=== PATIENT | male | born 1990 | race Caucasian/White ===

== ENCOUNTER 2017-05-09 04:45 | Emergency (ER) | payer OTHER ==
--- NOTE | 2017-05-09 04:53 | PDOC ---
History of Present Illness - General Stated Complaint: ABD PAIN Time Seen by Provider: 05/09/17 04:50 - History of Present Illness Initial Comments: 05/09/17 05:36 The patient is a 26 year old male with no significant PMH who presents for evaluation of epigastric abdominal pain. The patient reports onset of severe burning epigastric abdominal pain after an episode of non-bilious, non-bloody vomiting earlier this morning. He reports continued symptoms prompting his presentation to the ED for evaluation. He states that the burning sensation does radiate into his chest. He otherwise denies fevers, chills, SOB, chest pain, or changes with urination or bowel movements. Past History - Past Medical History Allergies/Adverse Reactions: Allergies Allergy/AdvReac Type Severity Reaction Status Date / Time peanut Allergy Verified 05/09/17 04:57 Penicillins Allergy Verified 05/09/17 04:57 mushrooms Allergy Uncoded 05/09/17 04:57 Home Medications: Ambulatory Orders Citalopram Hydrobromide [Celexa -] 20 mg PO DAILY 05/09/17 Ipratropium/Albuterol Sulfate [Combivent Respimat Inhal [facility]] 4 gm IH DAILY Loratadine [Claritin] 10 mg PO DAILY 05/09/17 Montelukast Sodium [Singulair] 10 mg PO DAILY 05/09/17 Naproxen 500 mg PO BID #28 tablet 05/09/17 Ondansetron [Zofran *Odt*] 8 mg SL BID PRN #10 od.tablet 05/09/17 Asthma: Yes - Immunization History Immunization Up to Date: No - Suicide/Smoking/Psychosocial Hx Smoking Status: No Smoking History: Never smoked Number of Cigarettes Smoked Daily: 0 Review of Systems - Review of Systems Comments:: 05/09/17 05:44 Constitutional: No fevers, chills, fatigue, malaise HEENT: No Rhinorrhea, nasal congestion, visual changes Cardiovascular: No chest pain, syncope, palpitations, lightheadedness Respiratory: No Cough, SOB, Hemoptysis, Gastrointestinal: Epigastric abdominal pain, nausea, vomiting. No Constipation , Diarrhea, Melena Genitourinary: No Dysuria, Frequency, Urgency, Hesitancy, Hematuria, Flank pain Musculoskeletal: No Myalgia, arthralgia Skin: No rashes, itching, bruising, pallor Neurologic: No Headache, Dizziness, Numbness, Weakness, or Tingling Psychiatric: No Hallucinations. No SI or HI *Physical Exam - Physical Exam Comments: 05/09/17 05:45 General Appearance: Nourished. No Apparent Distress HEENT: EOMI, LÓPEZ. No Pharyngeal Erythema, Tonsillar Exudate, Tonsillar Erythema Neck: No Cervical Lymphadenopathy Respiratory/Chest: Lungs Clear, Normal Breath Sounds. No Crackles, Rales, Rhonchi, Wheezing Cardiovascular: Regular Rhythm, Regular Rate. No Murmur, Gallops, Rubs Gastrointestinal/Abdominal: Normal Bowel Sounds, Soft. Epigastric tenderness to palpation. Negative McBurny's point. No Guarding, Rebound, Musculoskeletal: No CVA Tenderness Extremity: Normal Capillary Refill Integumentary: Normal Color, Dry, Warm Neurologic: Fully Oriented, Alert, Normal Mood/Affect, Normal Response, ED Treatment Course - LABORATORY CBC & Chemistry Diagram: 05/09/17 05:25 05/09/17 06:20 Medical Decision Making - Medical Decision Making 05/09/17 05:48 The patient is a 26 year old male with no significant PMH who presents for evaluation of epigastric abdominal pain. Differential includes but is not limited to: Pancreatitis, Gastritis, GERD, infectious, metabolic derangement. Given the patient's symptoms and physical exam, it is likely the patient's symptoms are due to GERD or gastritis. We will obtain a cbc, cmp, lipase to evaluate for possible other etiologies. We will treat with pepcid, zofran, iv fluids, maalox, and viscous lidocaine. We will continue to monitor and reassess. 05/09/17 06:50 Patient signed out to Dr. Cooper pending labs and reassessment. *DC/Admit/Observation/Transfer Diagnosis at time of Disposition: Vomiting - Discharge Dispostion Disposition: HOME Condition at time of disposition: Good - Prescriptions Prescriptions: Naproxen 500 mg PO BID #28 tablet Ondansetron [Zofran *Odt*] 8 mg SL BID PRN #10 od.tablet PRN Reason: Nausea - Referrals Referrals: Rebecca Shaffer MD [Primary Care Provider] - - Patient Instructions Printed Discharge Instructions: DI for Vomiting -- Adult Additional Instructions: You were seen today in the ED for vomiting. Please avoid solid food until you have not vomited for 24 hours. Please take zofran for nausea and vomiting. Please take naproxen for your pain. Please return if you have any new, worsening or concerning symptoms. - Post Discharge Activity
[2017-05-09 04:59] VITALS: TEMP 98.7; BMI 28.8
[2017-05-09] MEDS ORDERED: ONDANSETRON 4 MG/2 ML VIAL IVPUSH ONE (05:13)
[2017-05-09] MEDS ORDERED: FAMOTIDINE 20 MG/50 ML IVPB 20 MG/50 ML MG IVPB ONE (05:13)
[2017-05-09] MEDS ORDERED: SODIUM CHLORIDE 1,000 ML IV STA (05:13)
[2017-05-09] MEDS ORDERED: LIDOCAINE VISCOUS 2% ORAL/TOP 20 ML UNIT-DOSE CUP MM ONE (05:17)
[2017-05-09] MEDS ORDERED: MAG HYDROX/AL HYDROX/SIMETH 30 ML UNIT-DOSE CUP PO ONE (05:17)
--- NOTE | 2017-05-09 05:21 | PDOC ---
Attending Attestation - HPI HPI: 05/09/17 05:21 The patient is a 26 year old male, with no significant past medical history, who presents to the emergency department for evaluation of emesis and epigastric pain this morning after eating. He reportedly had one episode of nonbilious emesis this morning after eating which was then followed by epigastric burning that radiates to his chest. The patient denies chest pain, shortness of breath, headache and dizziness. The patient denies fever, chills, nausea, vomit, diarrhea and constipation. The patient denies dysuria, frequency, urgency and hematuria. Allergies: NKDA - Medical Decision Making 05/09/17 05:21 Documentation prepared by Kelsey Beltran, acting as medical aides teacher for Matthew Mclaughlin DO. <Kelsey Beltran - Last Filed: 05/09/17 05:21> - Resident Resident Name: Cesar Taylor - ED Attending Attestation I have performed the following: I have examined & evaluated the patient, The case was reviewed & discussed with the resident, I agree w/resident's findings & plan, Exceptions are as noted - Physicial Exam PE: 05/09/17 19:24 *Physical Exam General Appearance: Yes: Appropriately Dressed. No: Apparent Distress, Intoxicated HEENT: positive: EOMI, LÓPEZ, Normal ENT Inspection, Normal Voice, TMs Normal, Pharynx Normal. negative: Pale Conjunctivae, Photophobia, Scleral Icterus (R), Scleral Icterus (L) Neck: positive: Trachea midline, Normal Thyroid, Supple. negative: Tender, Rigid, Carotid bruit, Stridor, Lymphadenopathy (R), Lymphadenopathy (L), Thyromegaly Respiratory/Chest: positive: Lungs Clear, Normal Breath Sounds. negative: Chest Tender, Respiratory Distress, Accessory Muscle Use, Labored Respiration, RES, Crackles, Rales, Rhonchi, Stridor, Wheezing, Dullness Cardiovascular: positive: Regular Rhythm, Regular Rate, S1, S2. negative: Edema , JVD, Murmur, Bradycardia, Tachycardia Vascular Pulses: Dorsalis-Pedis (R): 2+, Doralis-Pedis (L): 2+ Gastrointestinal/Abdominal: positive: Normal Bowel Sounds, Flat, Soft. negative : Tender, Organomegaly, Pulsatile Mass, Increased Bowel Sounds, Decreased BS, Distended, Guarding, Rebound, Hernia, Hepatomegaly, Spleenomegaly Lymphatic: negative: Adenopathy, Tenderness Musculoskeletal: positive: Normal Inspection. negative: CVA Tenderness, Decreased Range of Motion Extremity: positive: Normal Capillary Refill, Normal Inspection, Normal Range of Motion, Pelvis Stable. negative: Tender, Pedal Edema, Swelling, Erythema Integumentary: positive: Normal Color, Dry, Warm. negative: Cyanotic, Erythema , Jaundice, Rash Neurologic: positive: reporting consultant II-XII NML intact, Fully Oriented, Alert, Normal Mood/ Affect, Motor Strength 5/5. negative: EOM Palsy, Facial Droop, Sensory Deficit - Medical Decision Making 05/09/17 19:24 Pt treated and released <Matthew Mclaughlin - Last Filed: 05/09/17 19:25>
[2017-05-09 05:38] LABS: BASO % 0.3 % (0-2.0); EOS % 1.4 % (0-4.5); MCHC 33.6 g/dl (32.0-35.9)
[2017-05-09 05:57] LABS: HEMATOCRIT 44.2 % (35.4-49); HEMOGLOBIN 14.9 GM/dL (11.7-16.9); LYMPH % 11.6 % (8-40); MCH 28.7 pg (25.7-33.7); MEAN CELL VOLUME 85.5 fl (80-96); MEAN PLT VOLUME 9.2 fl (7.5-11.1); MONO % 6.7 % (3.8-10.2); PLATELET COUNT 201 K/MM3 (134-434); RBC 5.18 M/mm3 (4.00-5.60); RDW 13.5 % (11.9-15.9); WHITE BLOOD COUNT 12.6 K/mm3 (4.0-10.0)
[2017-05-09 06:57] LABS: ALBUMIN 4.2 g/dl (3.4-5.0); ANION GAP 6 (8-16); BILIRUBIN,TOTAL 0.3 mg/dL (0.2-1.0); BLOOD UREA NITROGEN 22 mg/dL (7-18); CALCIUM 8.4 mg/dL (8.5-10.1); CHLORIDE 106 mmol/L (98-107); CO2 29 mmol/L (21-32); GLUCOSE,RANDOM 113 mg/dL (74-106); LIPASE 95 U/L (73-393); POTASSIUM 4.5 mmol/L (3.5-5.1); SGOT/AST 15 U/L (15-37); SGPT/ALT 26 U/L (12-78); SODIUM 141 mmol/L (136-145); TOT PROT 7.4 g/dl (6.4-8.2)
[2017-05-09 06:58] LABS: ALK PHOS 91 U/L (45-117)
--- NOTE | 2017-05-09 07:02 | PDOC ---
*Physical Exam - Vital Signs Last Vital Signs Temp Pulse Resp BP Pulse Ox 98.7 F 56 L 18 156/94 100 05/09/17 04:57 05/09/17 04:57 05/09/17 04:57 05/09/17 04:57 05/09/17 04:57 - Physical Exam Comments: 05/09/17 07:33 GENERAL: Awake, alert, and fully oriented, in no acute distress HEAD: No signs of trauma, normocephalic, atraumatic EYES: PERRLA, EOMI, sclera anicteric, conjunctiva clear ENT: Auricles normal inspection, hearing grossly normal, nares patent, oropharynx clear without exudates. Moist mucosa LUNGS: No distress, speaks full sentences, clear to auscultation bilaterally HEART: Regular rate and rhythm, normal S1 and S2, no murmurs, rubs or gallops, peripheral pulses normal and equal bilaterally. ABDOMEN: Soft, mildly tender in epigastric region, normoactive bowel sounds. No guarding, no rebound. No masses EXTREMITIES: Normal inspection, Normal range of motion, no edema. No clubbing or cyanosis. L ANKLE: Diffusely tender to palpation, no obvious deformity, neurovascularly intact, no bruising NEUROLOGICAL: Cranial nerves II through XII grossly intact. Normal speech, no focal sensorimotor deficits SKIN: Warm, Dry, normal turgor, no rashes or lesions noted. ED Treatment Course - LABORATORY CBC & Chemistry Diagram: 05/09/17 05:25 05/09/17 06:20 - ADDITIONAL ORDERS Additional order review: Laboratory Results 05/09/17 05:25 Sodium Cancelled Potassium Cancelled Chloride Cancelled Carbon Dioxide Cancelled Anion Gap Cancelled BUN Cancelled Creatinine Cancelled Creat Clearance w eGFR Cancelled Random Glucose Cancelled Calcium Cancelled Total Bilirubin Cancelled AST Cancelled ALT Cancelled Alkaline Phosphatase Cancelled Total Protein Cancelled Albumin Cancelled Lipase Cancelled 05/09/17 05:25 RBC 5.18 MCV 85.5 MCHC 33.6 RDW 13.5 MPV 9.2 Neutrophils % 80.0 Lymphocytes % 11.6 Monocytes % 6.7 Eosinophils % 1.4 Basophils % 0.3 - Medications Given in the ED: ED Medications Discontinued Medications Generic Name Dose Route Start Last Admin Trade Name Freq PRN Reason Stop Dose Admin Al Hydroxide/Mg Hydroxide 30 ml 05/09/17 05:17 05/09/17 05:39 Mylanta Oral Suspension - PO 05/09/17 05:18 30 ml ONCE ONE Administration Famotidine/Sodium Chloride 20 mg in 50 mls @ 100 mls/hr 05/09/17 05:13 06:15 Pepcid 20 Mg Premixed Ivpb - IVPB 05/09/17 05:42 100 mls/hr ONCE ONE Administration Sodium Chloride 1,000 mls @ 1,000 mls/hr 05/09/17 05:13 05/09/17 05:39 Normal Saline - IV 05/09/17 06:12 1,000 mls/hr ASDIR STA Administration Lidocaine HCl 20 ml 05/09/17 05:17 05/09/17 05:39 Xylocaine 2% Viscous Oral - MM 05/09/17 05:18 20 ml ONCE ONE Administration Ondansetron HCl 4 mg 05/09/17 05:13 05/09/17 05:39 Zofran Injection IVPUSH 05/09/17 05:14 4 mg ONCE ONE Administration Medical Decision Making - Medical Decision Making 05/09/17 07:[address] Taylor. Patient is a 26M with no significant medical history here today with epigastric burning abdominal pain after vomiting this morning. Patient now also complaining of vital signs. On initial evaluation, patient was resting comfortably. Upon awakening, patient immediately started asking for pain medications. Patient reports ankle pain after twisting it several days ago, has been ambulatory since. Believe that pain is gastritis secondary to vomiting. X-ray added. 05/09/17 07:54 Laboratory Tests 05/09/17 05:25 WBC 12.6 H Hct 44.2 MCV 85.5 Plt Count 201 CBC normal. CMP reassuring, lipase normal. Ankle x-ray pending. 05/09/17 08:18 X-rays of ankle normal. PO challenged passed. Patient reports having broken his ribs 6 years ago and wants pain medication. Counseled to take NSAIDs. Will discharge with return precautions, zofran and naproxen. *DC/Admit/Observation/Transfer Diagnosis at time of Disposition: Vomiting - Discharge Dispostion Disposition: HOME Condition at time of disposition: Good Admit: No - Prescriptions Prescriptions: Naproxen 500 mg PO BID #28 tablet Ondansetron [Zofran *Odt*] 8 mg SL BID PRN #10 od.tablet PRN Reason: Nausea - Referrals Referrals: Rebecca Shaffer MD [Primary Care Provider] - - Patient Instructions Printed Discharge Instructions: DI for Vomiting -- Adult Additional Instructions: You were seen today in the ED for vomiting. Please avoid solid food until you have not vomited for 24 hours. Please take zofran for nausea and vomiting. Please take naproxen for your pain. Please return if you have any new, worsening or concerning symptoms. - Post Discharge Activity
[2017-05-09] MEDS ORDERED: METOCLOPRAMIDE HCL INJECTION 10 MG/2 ML VIAL IVPUSH ONE (07:25)
[2017-05-09 08:02] VITALS: BP 132/85; PULSE 84
== END 2017-05-09 08:38 | disposition home or self-care (01) ==
LOC: JER 04:45
DX: R11.10 Vomiting, unspecified (principal)
CPT/HCPCS: 36415; 73610-TC-LT-FY; 73630-TC-LT; 80053; 83690; 85025; 99281-25

== ENCOUNTER 2018-11-02 15:41 | Emergency (ER) | payer OTHER ==
[2018-11-02 15:55] VITALS: BMI 22.0
--- NOTE | 2018-11-02 17:09 | PDOC ---
History of Present Illness - General Chief Complaint: Pain Stated Complaint: ABD PAIN/BLOOD IN STOOL History Source: Patient Exam Limitations: No Limitations - History of Present Illness Initial Comments: 11/02/18 16:56 Patient is a 28 year old male with h/o asthma, cholecystectomy 1 year ago, c/o n /v/d x 3 weeks. States long tern h/o of "stomach issues", was in [place] 1 year ago and passed a tape worm. He was prescribed medications at the time but did not pick it up due to insurance. He return to [place] in May and was doing fine until 1 month ago when he started loosing weight was 190 lbs, weight today 153.8 lbs. Three weeks ago started have nausea, vomiting and diarrhea assoc/w epigastric pain. Patient states anything he eat has diarrhea which is dark red. Last time vomited was 3 days ago. PMHX: as above PSOCHX: neg cig, etoh, drug ALL: PCN -itching and swelling GENERAL/CONSTITUTIONAL: No fever or chills. No weakness. (+) weight change. HEAD, EYES, EARS, NOSE AND THROAT: No change in vision. No ear pain or discharge. No sore throat. CARDIOVASCULAR: No chest pain or shortness of breath. RESPIRATORY: No cough, wheezing, or hemoptysis. GASTROINTESTINAL: (+) nausea, vomiting, diarrhea (-) constipation. No rectal bleeding. GENITOURINARY: No dysuria, frequency, or change in urination. MUSCULOSKELETAL: No joint or muscle swelling or pain. No neck or back pain. SKIN AND BREASTS: No rash or easy bruising. NEUROLOGIC: No headache, vertigo, loss of consciousness, or loss of sensation. PSYCHIATRIC: No depression or anxiety. ENDOCRINE: No increased thirst. No abnormal weight change. HEMATOLOGIC/LYMPHATIC: No anemia, easy bleeding, or history of blood clots. ALLERGIC/IMMUNOLOGIC: No hives or skin allergy. No latex allergy. GENERAL: The patient is awake, alert, and fully oriented, in no acute distress. HEAD: Normal with no signs of trauma. EYES: Pupils equal, round and reactive to light, extraocular movements intact, sclera anicteric, conjunctiva clear. ENT: Ears normal, nares patent, oropharynx clear without exudates. Moist mucous membranes. NECK: Normal range of motion, supple without lymphadenopathy, JVD, or masses. LUNGS: Breath sounds equal, clear to auscultation bilaterally. No wheezes, and no crackles. HEART: Regular rate and rhythm, normal S1 and S2 without murmur, rub. ABDOMEN: Soft, (+) epigastric tenderness, normoactive bowel sounds. No guarding , no rebound. No masses. EXTREMITIES: Normal range of motion, no edema. No clubbing or cyanosis. No cords, erythema, or tenderness. NEUROLOGICAL: Cranial nerves II through XII grossly intact. Normal speech, normal gait. PSYCH: Normal mood, normal affect. SKIN: Warm, Dry, normal turgor, no rashes or lesions noted, stretch prado arms. Past History - Past Medical History Allergies/Adverse Reactions: Allergies Allergy/AdvReac Type Severity Reaction Status Date / Time peanut Allergy Verified 11/02/18 15:52 Penicillins Allergy Verified 11/02/18 15:52 mushrooms Allergy Uncoded 11/02/18 15:52 Home Medications: Ambulatory Orders NK [No Known Home Medication] 11/02/18 Asthma: Yes - Immunization History Immunization Up to Date: No - Suicide/Smoking/Psychosocial Hx Smoking Status: No Smoking History: Never smoked Have you smoked in the past 12 months: No Number of Cigarettes Smoked Daily: 0 Hx Alcohol Use: No Drug/Substance Use Hx: No *Physical Exam - Vital Signs Last Vital Signs Temp Pulse Resp BP Pulse Ox 98.6 F 75 16 110/76 97 11/02/18 15:50 11/02/18 15:50 11/02/18 15:50 11/02/18 15:50 11/02/18 15:50 ED Treatment Course - LABORATORY CBC & Chemistry Diagram: 11/02/18 17:30 11/02/18 17:30 Medical Decision Making - Medical Decision Making 11/02/18 16:56 Patient is a 28 year old male with h/o asthma, cholecystectomy 1 year ago, c/o n /v/d x 3 weeks. [facility] "stomach issues", was in [place] 1 year ago and passed a tape worm. He was prescribed medications at the time but did not pick it up due to insurance. He return to [place] in May and was doing fine until 1 month ago when he started loosing weight was 190 lbs, weight today 153.8 lbs. Three weeks ago started have nausea, vomiting and diarrhea assoc/w epigastric pain. Patient states anything he eat has diarrhea which is dark red. Last time vomited was 3 days ago. Consistent with gastroenteritis, will rule out colitis Stool for O&P, C. difficile, culture. CT scan 11/02/18 21:59 Patient Full Name: GOLDIE YEUNG Patient Accession No: [id number] Patient : 1990 Reason for Exam: abdominal villeda, nausea, bloody diarrhea, r/o colitis Referring Physician: Patient Name: GAMAL AMEZCUA THIS IS A PRELIMINARY REPORT FROM [facility] DATE OF SERVICE: 2018-11-02 20:30:18 IMAGES: [id number] EXAM: ABDOMEN \\T\\ PELVIS CT WITH CONTR History: 28-year-old male with abdominal pain, nausea, bloody diarrhea Comparison: None Procedure: CT scan abdomen and pelvis, dated November 02, 2018 . Axial images obtained followed by coronal and sagittal reconstructions. Intravenous contrast utilized, Omnipaque 350 . Findings: The liver, spleen, pancreas, adrenal glands and right kidney unremarkable. 1.9 cm enhancing lesion medial cortex lower pole left kidney extending into the perinephric fat. The lesion better demonstrated on the coronal and sagittal reconstructed images. Bladder unremarkable. Prostate gland and seminal vesicles normal configuration. Status post cholecystectomy. No ureteral or bladder abnormalities noted. Rectum and perirectal space unremarkable. Large bowel not well distended for this exam. The appendix is unremarkable. There is fecalization of the terminal ileum which appears moderately dilated; without associated bowel wall thickening evident. No large or small bowel inflammatory changes or obstruction identified. Indeterminate lymph nodes noted within the central mesenteric fat. Impression: 1. Distention of the large bowel limited with this exam. No obvious focal or diffuse large or small bowel wall thickening appreciated. Fecalization of the terminal ileum consistent with stasis. 2. Indeterminate lymph nodes noted within the central mesenteric fat. Interval surveillance recommended. Also suggest 2 view chest radiograph in follow-up. 3. 1.9 cm enhancing lesion medial cortex lower pole left kidney, concerning for renal cell tumor; stage II. Recommend nonemergent follow-up MRI. One or more of the following dose reduction techniques were used: automated exposure control, adjustment of the mA and/or kV according to patient size, use of iterative reconstructive technique. THIS DOCUMENT HAS BEEN ELECTRONICALLY SIGNED Tim Marcelino MD 11/02/2018 21:54 EST M.Marshall. Please call [facility] [phone] ([phone]) with questions. INTERPRETING RADIOLOGIST: Tim Marcelino MD Electronically Signed: Nov 02, 2018 09:56PM EDT 11/02/18 22:08 All findings on the CT scan discussed with the patient and instructed that he needs to follow-up with a primary care doctor and with renal immediately. Referral given for and PMD. Patient ate and is tolerating by mouth. I discussed the physical exam findings, ancillary test results and final diagnoses with the patient. I answered all of the patient's questions. The patient was satisfied with the care received and felt comfortable with the discharge plan and treatment plan. The Patient agrees to follow up with the primary care physician within 24-72 hours. *DC/Admit/Observation/Transfer Diagnosis at time of Disposition: Nausea, vomiting and diarrhea, Renal mass of unknown nature Abdominal pain Qualifiers: Abdominal location: epigastric Qualified Code(s): R10.13 - Epigastric pain Diagnosis at time of Disposition: (Ruled Out): Renal mass, left - Discharge Dispostion Disposition: HOME Condition at time of disposition: Stable - Referrals Referrals: Rebecca Shaffer MD [Primary Care Provider] - Shad Samayoa MD [Staff Physician] - Keisha Landis DO [Staff Physician] - - Patient Instructions Printed Discharge Instructions: DI for Diarrhea and Traveler's Diarrhea -- Adult, DI for Vomiting -- Adult, DI for Kidney Biopsy Additional Instructions: Your Discharge Instructions: You must call primary care physician within 24 hours to arrange follow-up. Return to the Emergency Department with any new, persistent or worsening symptoms, for fever, chills, SOB, dizziness or any other concerning changes that may occur. You must follow-up with a primary care doctor, and a renal doctor immediately for further evaluation and testing. Your stool test in a few days he will be called with the results. - Post Discharge Activity
[2018-11-02] MEDS ORDERED: FAMOTIDINE 20 MG/50 ML IVPB 20 MG/50 ML MG IVPB ONE ×2 (17:16→17:32)
[2018-11-02] MEDS ORDERED: SODIUM CHLORIDE 0.9% 500 ML INFUS.BAG IV ONE (17:16)
[2018-11-02] MEDS ORDERED: ONDANSETRON 4 MG/2 ML VIAL IVPUSH ONE (17:16)
[2018-11-02] MEDS ORDERED: ONDANSETRON 4 MG/2 ML VIAL ONE (17:32)
[2018-11-02 17:46] LABS: BASO % 0.3 % (0-2.0); EOS % 0.6 % (0-4.5); HEMATOCRIT 46.4 % (35.4-49); HEMOGLOBIN 15.3 GM/dL (11.7-16.9); LYMPH % 13.9 % (8-40); MCH 28.6 pg (25.7-33.7); MEAN CELL VOLUME 86.8 fl (80-96); MEAN PLT VOLUME 8.7 fl (7.5-11.1); MONO % 8.6 % (3.8-10.2); NEUT % 76.6 % (42.8-82.8); PLATELET COUNT 211 K/MM3 (134-434); RBC 5.34 M/mm3 (4.00-5.60); RDW 13.8 % (11.9-15.9); WHITE BLOOD COUNT 8.9 K/mm3 (4.0-10.0)
[2018-11-02 18:04] LABS: AMYLASE 47 U/L (25-115); LIPASE 126 U/L (73-393)
[2018-11-02 18:09] LABS: ALBUMIN 3.8 g/dl (3.4-5.0); BILIRUBIN,TOTAL 0.4 mg/dL (0.2-1); BLOOD UREA NITROGEN 15.9 mg/dL (7-18); CALCIUM 8.8 mg/dL (8.5-10.1); CREATININE 0.9 mg/dL (0.55-1.3); POTASSIUM 4.3 mmol/L (3.5-5.1); TOT PROT 6.7 g/dl (6.4-8.2)
[2018-11-02] MEDS ORDERED: SUCRALFATE 1 GM/10 ML UNIT DOSE CUPS PO ONE (19:34)
[2018-11-02 19:43] VITALS: BP 104/53; PULSE 68; TEMP 98.3
[2018-11-02] MEDS ORDERED: SUCRALFATE 1 GM TABLET (FP) ONE (19:52)
[2018-11-02 23:01] LABS: URINE APPEARANCE Clear; URINE BILIRUBIN Negative (NEGATIVE); URINE COLOR Yellow; URINE GLUCOSE (UA) Negative (NEGATIVE); URINE KETONE Negative (NEGATIVE); URINE LEUK ESTERASE Negative (NEGATIVE); URINE NITRITE Negative (NEGATIVE); URINE PROTEIN Negative (NEGATIVE); URINE UROBILINOGEN 0.2 mg/dL (0.2-1.0)
[2018-11-02 23:24] LABS: EPI CELLS 0.2 /HPF (0-5/HPF); URINE BACTERIA 0.2 /hpf (NEGATIVE); URINE RBC 0.1 /hpf (0-4); URINE WBC 0.2 /hpf (0-5)
--- NOTE | 2018-11-03 11:34 | PDOC ---
Patient Follow-up (Call Back) - Post ED Follow - Up Condition at time of discharge: Stable Disposition at time of original discharge: HOME Reason for Call Back: Radiology (?antrim and fundal bleeding on CT. Spoke with patient who states he will return after his shift at work today. He reports improvement in condition.)
== END 2018-11-02 23:30 | disposition home or self-care (01) ==
LOC: JER 15:41
PROC: 3E033GC Introduction of Other Therapeutic Substance into Peripheral Vein, Percutaneous Approach (ICD-10-PCS; principal; 2018-11-02)
PROC: 3E0337Z Introduction of Electrolytic and Water Balance Substance into Peripheral Vein, Percutaneous Approach (ICD-10-PCS; 2018-11-02)
DX: R11.2 Nausea with vomiting, unspecified (principal); R19.7 Diarrhea, unspecified; R10.13 Epigastric pain; N28.89 Other specified disorders of kidney and ureter; Z88.0 Allergy status to penicillin; Z91.010 Allergy to peanuts
CPT/HCPCS: 36415; 74177-TC; 80053; 81003; 82150; 82272; 83690; 85025; 87177; 87205; 87209; 87324; 87449; 96365; 96375; 99283-25

== ENCOUNTER 2018-11-03 21:15 | Inpatient (IN) | payer OTHER ==
[2018-11-03] MEDS ORDERED: SODIUM CHLORIDE 1,000 ML IV STA (21:18)
--- NOTE | 2018-11-03 21:18 | PDOC ---
Rapid Medical Evaluation Time Seen by Provider: 11/03/18 21:16 Medical Evaluation: Allergies Allergy/AdvReac Type Severity Reaction Status Date / Time peanut Allergy Verified 11/02/18 15:52 Penicillins Allergy Verified 11/02/18 15:52 mushrooms Allergy Uncoded 11/02/18 15:52 11/03/18 21:16 CC: Called back for ? blood in stomach on CTAP performed 11/03 PE: LUQ tenderness with guarding. Orders: labs Patient will proceed to ED for continued evaluation. 11/03/18 21:18 Discharge Disposition - Diagnosis Abdominal pain - Referrals Referrals: Rebecca Shaffer MD [Primary Care Provider] - - Patient Instructions - Post Discharge Activity
[2018-11-03 21:44] LABS: BASO % 0.3 % (0-2.0); EOS % 2.7 % (0-4.5); HEMOGLOBIN 14.5 GM/dL (11.7-16.9); LYMPH % 25.4 % (8-40); MCH 29.1 pg (25.7-33.7); MCHC 33.7 g/dl (32.0-35.9); MEAN CELL VOLUME 86.3 fl (80-96); MEAN PLT VOLUME 8.7 fl (7.5-11.1); MONO % 7.1 % (3.8-10.2); NEUT % 64.5 % (42.8-82.8); PLATELET COUNT 227 K/MM3 (134-434); RBC 4.99 M/mm3 (4.00-5.60); RDW 13.8 % (11.9-15.9)
[2018-11-03 22:10] LABS: ALBUMIN 3.9 g/dl (3.4-5.0); BILIRUBIN,TOTAL 0.3 mg/dL (0.2-1); BLOOD UREA NITROGEN 14.2 mg/dL (7-18); CREATININE 1.1 mg/dL (0.55-1.3); POTASSIUM 4.8 mmol/L (3.5-5.1); TOT PROT 6.7 g/dl (6.4-8.2)
--- NOTE | 2018-11-03 23:03 | PDOC ---
History of Present Illness - General Chief Complaint: Pain Stated Complaint: SENT BY DOCTOR Time Seen by Provider: 11/03/18 21:16 History Source: Patient Exam Limitations: No Limitations - History of Present Illness Initial Comments: Pt is a 28 yo M, with PMH of asthma, chronic "stomach problems" (prior tapeworm) , and extensive psychiatric history (MDD, schizophrenia, and PTSD previously on symbalta, ability, and trazodone), who is presenting for f/u of CT abd/pelvis results. Pt was seen yesterday in the fast track ER, after having n/v/diarrhea and ~40 lbs weight loss over the past 3-4 weeks. Pt states he has frequent loose stools, but did not have nausea or vomiting today. CT abd/pelvis yesterday showed potential RCC, with nodules in the gastric fundus, gastric antrum, and at the lung base. Pt denies any recent fevers/chills, headache, vision changes, syncope, chest pain, palpitations, SOB, urinary symptoms, constipation, or leg swelling. Allergies: NKDA PCP: Deena Social: Pt denies any cigarette, alcohol, or drug use. Pt denies any recent travel or sick contacts. Surgical: cholecystectomy Family: Mother with "lymph node" cancer 11/03/18 23:12 SISTER, JOSE, WOULD LIKE PHONE CALL REGARDING ANY INVASIVE PROCEDURES, DUE TO PT EXTENSIVE PSYCHIATRIC HISTORY. PT HAS NOT RECEIVED PSYCH MEDS FOR MULTIPLE MONTHS 2/ LOSING [facility] [phone] 11/03/18 23:17 Past History - Travel Traveled outside of the country in the last 30 days: No Close contact w/someone who was outside of country & ill: No - Past Medical History Allergies/Adverse Reactions: Allergies Allergy/AdvReac Type Severity Reaction Status Date / Time peanut Allergy Verified 11/02/18 15:52 Penicillins Allergy Verified 11/02/18 15:52 mushrooms Allergy Uncoded 11/02/18 15:52 Home Medications: Ambulatory Orders NK [No Known Home Medication] 11/02/18 Asthma: Yes Cardiac Disorders: No CVA: No COPD: No GI Disorders: Yes (gerd in past) - Immunization History Immunization Up to Date: No - Suicide/Smoking/Psychosocial Hx Smoking Status: No Smoking History: Never smoked Have you smoked in the past 12 months: No Number of Cigarettes Smoked Daily: 0 Hx Alcohol Use: No Drug/Substance Use Hx: No Review of Systems - Review of Systems Able to Perform ROS?: Yes Is the patient limited Urdu proficient: No Constitutional: Yes: Unintentional Wgt. Loss. No: Chills, Diaphoresis, Fever, Loss of Appetite, Malaise, Night Sweats, Weakness, Weight Stable HEENTM: No: Blurred Vision, Double Vision, Nose Congestion, Throat Pain, Throat Swelling, Difficulty Swallowing Respiratory: No: Cough, Orthopnea, Shortness of Breath Cardiac (ROS): No: Chest Pain, Edema, Irregular Heart Rate, Lightheadedness, Palpitations, Syncope, Chest Tightness ABD/GI: Yes: Diarrhea, Nausea, Vomiting. No: Abdominal Distended, Constipated, Poor Appetite, Poor Fluid Intake, Rectal Bleeding, Abdominal cramping : No: Burning, Dysuria, Frequency, Flank Pain, Hematuria, Pain, Urgency Musculoskeletal: No: Back Pain, Muscle Pain Integumentary: No: Rash Neurological: No: Headache, Numbness, Weakness, Unsteady Gait, Dizziness Psychiatric: No: Sleep Pattern Change, Change in Appetite Endocrine: No: Increased Urine, Change in Weight Hematologic/Lymphatic: No: Anemia, Blood Clots, Easy Bleeding, Easy Bruising All Other Systems: Reviewed and Negative *Physical Exam - Vital Signs Last Vital Signs Temp Pulse Resp BP Pulse Ox 98.6 F 75 20 125/76 97 11/03/18 21:17 11/03/18 21:17 11/03/18 21:17 11/03/18 21:17 11/03/18 21:17 - Physical Exam Comments: Vitals stable, pt afebrile. Pt appears anxious, clothes are dirty. Normal body habitus. Pt alert and oriented x3. account information clerk generally intact, muscular strength and sensation intact. No midline spinal tenderness, step-offs, or crepitus. Head normocephalic, atraumatic. Eyes PERRLA, EOMI. Oropharynx without erythema or exudates, no LAD b/l. No nasal congestion, hearing intact. Clear heart sounds, S1/S2, no JVD, b/l pedal edema, or heart murmur. Clear lung sounds, no respiratory distress, wheezes, crackles, or accessory muscle use. No abdominal or CVA tenderness to palpation, no rebound, no guarding. Abdomen soft, non-distended, and with normoactive bowel sounds. Skin without jaundice or rash. 11/03/18 23:16 ED Treatment Course - LABORATORY CBC & Chemistry Diagram: 11/03/18 21:29 11/03/18 21:29 - ADDITIONAL ORDERS Additional order review: Laboratory Results 11/03/18 11/03/18 21:29 21:29 WBC 8.0 RBC 4.99 Hgb 14.5 Hct 43.0 MCV 86.3 MCH 29.1 MCHC 33.7 RDW 13.8 Plt Count 227 MPV 8.7 Absolute Neuts (auto) 5.2 Neutrophils % 64.5 Lymphocytes % 25.4 D Monocytes % 7.1 Eosinophils % 2.7 D Basophils % 0.3 Nucleated RBC % 0 Sodium 144 Potassium 4.8 Chloride 109 H Carbon Dioxide 30 Anion Gap 6 L BUN 14.2 Creatinine 1.1 Est GFR (CKD-EPI)AfAm 106.06 Est GFR (CKD-EPI)NonAf 91.51 Random Glucose 93 Calcium 9.0 Total Bilirubin 0.3 AST 31 ALT 31 Alkaline Phosphatase 84 Total Protein 6.7 Albumin 3.9 Lipase 236 11/03/18 21:29 RBC 4.99 MCV 86.3 MCHC 33.7 RDW 13.8 MPV 8.7 Neutrophils % 64.5 Lymphocytes % 25.4 D Monocytes % 7.1 Eosinophils % 2.7 D Basophils % 0.3 Medical Decision Making - Medical Decision Making Pt was seen at bedside, also will be seen by attending Dr. Be. Pt presenting with n/v/d over the past 3 weeks, with ~40 lbs weight loss, consistent with potential RCC with possible metastasis on imaging (nodules noted in L kidney, gastric, and lungs). Provided 1 L IV NS for improvement of likely dehydration. Will continue to reassess pt and monitor for symptomatic improvement. CBC and CMP consistent with yesterday's labwork. Paged hospitalist team for admission so pt can receive emergent consultation with specialists. Pt stable and is resting comfortably. 11/03/18 23:23 Pt admitted to hospitalist team. Pt lying comfortably. Denies nausea medications at this time. Receiving IVF hydration. 11/03/18 23:44 *DC/Admit/Observation/Transfer Diagnosis at time of Disposition: Nausea, vomiting and diarrhea, Renal mass of unknown nature Abdominal pain Qualifiers: Abdominal location: generalized Qualified Code(s): R10.84 - Generalized abdominal pain - Discharge Dispostion Condition at time of disposition: Stable Decision to Admit order: Yes Decision to Admit order Date/Time: Decision to Admit Order Category Date Time Status Decision to Admit to Hospital Routine Admission 11/03/18 22:45 Active - Referrals Referrals: Rebecca Shaffer MD [Primary Care Provider] - - Patient Instructions - Post Discharge Activity
--- NOTE | 2018-11-03 23:42 | PDOC ---
Documentation entered by Juana Aguayo SCRIBE, acting as scribe for Maday Be DO. Maday Be DO: This documentation has been prepared by the Olivier bass Adrianna, SCRIBE, under my direction and personally reviewed by me in its entirety. I confirm that the documentation accurately reflects all work, treatment, procedures, and medical decision making performed by me. Attending Attestation - Resident Resident Name: Claudia Pelayo - ED Attending Attestation I have performed the following: I have examined & evaluated the patient, The case was reviewed & discussed with the resident, I agree w/resident's findings & plan - HPI HPI: The patient is a 28 year old male, with significant PMH of asthma and cholecystectomy, who presents to the ED for evaluation of abnormal CT scan results. Patient was seen in the ED yesterday for ongoing nausea, vomit, and diarrhea for the past 3 weeks. He notes he has lost 40 pounds over the past few months. He was advised to come back to the ED to review abdomen/pelvis CT scan findings. Allergies: Peanut, penicillins, mushrooms Surgical History: Cholecystectomy Social History: Denies EtOH, tobacco, or illicit drug use PCP: Dr. Parham. - Physicial Exam PE: Agree with resident exam. - Medical Decision Making 11/03/18 23:41 28-year-old male with possible renal mass on CT with multiple nodules present as well Patient has had abdominal discomfort and diarrhea persistently Patient called back to the emergency department for further evaluation He will be admitted to service for possible malignancy
--- NOTE | 2018-11-03 23:43 | PN ---
Teaching Attending Note Name of Resident: Alicia Gay ATTENDING PHYSICIAN STATEMENT I saw and evaluated the patient. I reviewed the resident's note and discussed the case with the resident. I agree with the resident's findings and plan as documented. SUBJECTIVE: Patient is a 28 year old man with PMH of Asthma, Pencillin allergy, Cholecystectomy, Chronic "stomach problems" (prior tapeworm), and Psychiatric illness (MDD, schizophrenia, and PTSD previously on symbalta, ability, and trazodone), who is presenting for follow up of CT abdomen/pelvis results. He was seen yesterday in the fast track ER, for nausea, vomiting, and about 40 lbs weight loss over the past 3-4 weeks. Patient states he has frequent loose stools , but did not have nausea or vomiting today. CT abdomen/pelvis yesterday showed potential Renal cell carcinoma with nodules in the gastric fundus, gastric antrum, and at the lung base. Patient denies any recent fevers, chills, headache , vision changes, syncope, chest pain, palpitations, SOB, urinary symptoms, constipation, or leg swelling. Patient denies any cigarette, alcohol, or drug use. Denies any recent travel or sick contacts. Mother had "lymph node" cancer sister has DM. OBJECTIVE: Alert Vital Signs Period Temp Pulse Resp BP Sys/Pinto Pulse Ox Last 24 Hr 98.6 F 75 20 125/76 97 HEENT: No Jaundice, eye redness or discharge, PERRLA, EOMI. Normocephalic, atraumatic. External ears are normal and hearing is grossly intact. No nasal discharge. Neck: Supple, nontender. No palpable adenopathy or thyromegaly. No JVD Chest: Good effort. Clear to auscultation and percussion. Heart: Regular. No S3, rub or murmur Abdomen: Not distended, soft, nontender and no HSM. No rebound or guarding. Normal bowel sounds. Ext: Peripheral pulses intact. No leg edema. Skin: Warm and dry. No petechiae, rash or ecchymosis. Neuro: Alert. Oriented x3. CN 2-12 grossly intact. Sensation grossly intact in all four extremities and DTR are symmetric. Psych: Appropriate mood and affect. Good insight. Home Medications Medication Instructions Recorded NK [No Known Home Medication] 11/02/18 Abnormal Lab Results 11/03/18 21:29 Chloride 109 H Anion Gap 6 L ASSESSMENT AND PLAN: 1. Metastatic renal cell carcinoma? - CT scan shows nodules in left kidney, stomach and lungs - possibly primary renal cancer with metastasis and lymphadenopathy. Nausea, vomiting and diarrhea may be primary viral gastroenteritis or paraneoplastic event. Will send any available stool for analysis, C.diff, ova and parasites. Will get Urinalysis and EKG stat, and then treat with IV zofran and reglan. Treat with IV Ringers lactate. Will get TSH, HIV test, HbA1c and consult GI, Oncology, IR and Psychiatry. 2. DVT prophylaxis - Lovenox 40 mg SQ q 24 hours. 3. Advance directives - Full code
--- NOTE | 2018-11-04 00:40 | HP ---
CHIEF COMPLAINT: Nausea, vomiting, diarrhea PCP: Dr. Shaffer HISTORY OF PRESENT ILLNESS: Patient is a 28 year old male with PMH of mild asthma and prior psych history who presents with nausea, vomiting, diarrhea for 3 weeks. Pt has had nbnb vomiting 1-4 times per day and frequent loose stools after every meal. He also endorses associated abd discomfort and intermittent chills and diaphoresis. He denies any fevers, SOB, cough, chest pain, or night sweats. Pt reports that he has had a 40 pound unintentional weight loss over the past 4 months. He also complains of urinary frequency and urgency but denies any dysuria or hematuria. Pt denies any recent sick contacts and no recent travel. He denies any major changes in his diet. He has never had these symptoms before. ER course was notable for: (1) CTAP and lung: multiple lesions (see below) (2) (3) Recent Travel: denies PAST MEDICAL HISTORY: Mild intermittent asthma (no meds) PAST SURGICAL HISTORY: Cholecystectomy (Feb 2018) Social History: Smoking: denies Alcohol: denies Drugs: denies Pt lives with multiple friends with poor support system. Family is located down in [place]. Was recently not on speaking terms with family. Now in contact with sister, who will fly up to help if needed. Pt states that he is the only one in his family and friend group who does not use drugs. Was hesitant to disclose sexual history. Family History: Mother: AML (), HTN, DM Sister: Type I DM Father: unknown Allergies peanut Allergy (Verified 11/02/18 15:52) Penicillins Allergy (Verified 11/02/18 15:52) mushrooms Allergy (Uncoded 11/02/18 15:52) HOME MEDICATIONS: Home Medications Medication Instructions Recorded NK [No Known Home Medication] 11/02/18 REVIEW OF SYSTEMS CONSTITUTIONAL: chills, diaphoresis Absent: fever, generalized weakness, malaise, loss of appetite, weight change HEENT: Absent: rhinorrhea, nasal congestion, throat pain, throat swelling, difficulty swallowing, mouth swelling, ear pain, eye pain, visual changes CARDIOVASCULAR: Absent: chest pain, syncope, palpitations, irregular heart rate, lightheadedness , peripheral edema RESPIRATORY: Absent: cough, shortness of breath, dyspnea with exertion, orthopnea, wheezing, stridor, hemoptysis GASTROINTESTINAL: abdominal pain, nausea, vomiting, diarrhea Absent: abdominal distension, constipation, melena, hematochezia GENITOURINARY: frequency, urgency Absent: dysuria, hesitancy, hematuria, flank pain, genital pain MUSCULOSKELETAL: Absent: myalgia, arthralgia, joint swelling, back pain, neck pain SKIN: Absent: rash, itching, pallor HEMATOLOGIC/IMMUNOLOGIC: Absent: easy bleeding, easy bruising, lymphadenopathy, frequent infections ENDOCRINE: unexplained weight loss Absent: unexplained weight gain, heat intolerance, cold intolerance NEUROLOGIC: Absent: headache, focal weakness or paresthesias, dizziness, unsteady gait, seizure, mental status changes, bladder or bowel incontinence PSYCHIATRIC: Absent: anxiety, depression, suicidal or homicidal ideation, hallucinations. PHYSICAL EXAMINATION Vital Signs - 24 hr 11/03/18 21:17 Temperature 98.6 F Pulse Rate 75 Respiratory 20 Rate Blood Pressure 125/76 O2 Sat by Pulse 97 Oximetry (%) GENERAL: Awake, alert, and fully oriented, in no acute distress. HEAD: Normal with no signs of trauma. EYES: Pupils equal, round and reactive to light, extraocular movements intact, sclera anicteric, conjunctiva clear. No lid lag. EARS, NOSE, THROAT: Ears normal, nares patent, oropharynx clear without exudates. Moist mucous membranes. NECK: Normal range of motion, supple without lymphadenopathy, JVD, or masses. LUNGS: Breath sounds equal, clear to auscultation bilaterally. No wheezes, and no crackles. No accessory muscle use. HEART: Regular rate and rhythm, normal S1 and S2 without murmur, rub or gallop. ABDOMEN: Mild tenderness in mid epigastric area, soft, not distended, normoactive bowel sounds, no guarding, no rebound, no masses. No hepatomegaly or splenomegaly. MUSCULOSKELETAL: Normal range of motion at all joints. No bony deformities or tenderness. CVA tenderness R>L. UPPER EXTREMITIES: 2+ pulses, warm, well-perfused. No cyanosis. No clubbing. No peripheral edema. LOWER EXTREMITIES: 2+ pulses, warm, well-perfused. No calf tenderness. No peripheral edema. NEUROLOGICAL: Cranial nerves II-XII intact. Normal speech. Normal gait. PSYCHIATRIC: Cooperative. Good eye contact. Appropriate mood and affect. SKIN: Warm, dry, normal turgor, no rashes or lesions noted, normal capillary refill. Laboratory Results - last 24 hr CBC, BMP 11/03/18 21:29 11/03/18 21:29 ASSESSMENT/PLAN: Patient is a 28 year old male with PMH of mild asthma and prior psych history who presents with nausea, vomiting, diarrhea for 3 weeks. #Vomiting and diarrhea Unlikely infectious cause as pt is afebrile, no leukocytosis, neg UA. Will f/ u stool cx and O&P With new CT findings and setting of weight loss, possibly 2/2 to malignancy and metastases CTAP: 1.8x1.8 enhancing L lower renal pole mass, suspicious for RCC. 2 areas of hyperdense foci in gastric antrum and fundus. Multiple thickened small bowel loops with mesenteric adenopathy CT chest: 3mm L lung base and 2mm R lung base nodules Consulting hem/onc (Yessy), GI (Piyush), and IR (Thony) for further w/u, possible EGD, biopsy, additional imaging Zofran prn for nausea #Chills, diaphoresis, weight loss Likely associated with/similar etiology as pt's vomiting and diarrhea, follow plan as above With recent weight loss and family hx of type I DM, will get Hgb A1C and TSH Given social history, will f/u HIV testing. Consider hepatitis panel as well #Psych hx Pt reports that he has had an extensive psych history of ADHD, bipolar, and schizophrenia and was formerly treated with abilify, seroquel, and depakote. He states that he has not seen a psychiatrist in 5 years and has not been on any psych medications in 5 years. Will consult psych for further assessment #Asthma Pt not on any home meds. Denies any complaints. Will cont to monitor #FEN IV NS @ 75ml/hr Clear liquid diet, pending possible GI and Onc w/u tomorrow #DVT ppx Heparin SQ #Dispo Monitor on med-surg Visit type - Emergency Visit Emergency Visit: Yes ED Registration Date: 11/03/18 Care time: The patient presented to the Emergency Department on the above date and was hospitalized for further evaluation of their emergent condition. - New Patient This patient is new to me today: Yes Date on this admission: 11/04/18 - Critical Care Critical Care patient: No ATTENDING PHYSICIAN STATEMENT I saw and evaluated the patient. I reviewed the resident's note and discussed the case with the resident. I agree with the resident's findings and plan as documented. SUBJECTIVE: OBJECTIVE: ASSESSMENT AND PLAN:
[2018-11-04] MEDS ORDERED: SODIUM CHLORIDE 1,000 ML IV SCH (00:45)
[2018-11-04] MEDS ORDERED: METOCLOPRAMIDE HCL INJECTION 10 MG/2 ML VIAL IVPUSH PRN (07:06)
[2018-11-04] MEDS ORDERED: LACTATED RINGERS SOLUTION 1,000 ML/1,000 ML INFUS.BAG IV SCH (07:15)
[2018-11-04] MEDS: HEPARIN NA (PORCINE) 5,000 UNITS/ML 1ML VIAL SQ SCH ×3 (07:23→22:48)
[2018-11-04 07:58] LABS: BASO % 0.5 % (0-2.0); EOS % 3.4 % (0-4.5); HEMATOCRIT 37.1 % (35.4-49); HEMOGLOBIN 12.7 GM/dL (11.7-16.9); LYMPH % 32.5 % (8-40); MCH 29.5 pg (25.7-33.7); MCHC 34.2 g/dl (32.0-35.9); MEAN CELL VOLUME 86.1 fl (80-96); MEAN PLT VOLUME 8.7 fl (7.5-11.1); MONO % 8.8 % (3.8-10.2); NEUT % 54.8 % (42.8-82.8); PLATELET COUNT 167 K/MM3 (134-434); RDW 13.4 % (11.9-15.9)
[2018-11-04 08:02] LABS: ALBUMIN 3.3 g/dl (3.4-5.0); BILIRUBIN,TOTAL 0.2 mg/dL (0.2-1); BLOOD UREA NITROGEN 14.5 mg/dL (7-18); CALCIUM 8.2 mg/dL (8.5-10.1); CREATININE 0.9 mg/dL (0.55-1.3); TOT PROT 5.7 g/dl (6.4-8.2)
[2018-11-04] MEDS: PANTOPRAZOLE SODIUM 40 MG VIAL IVPUSH SCH (12:32)
[2018-11-04] MEDS: DEXTROSE 5%-WATER - 1,000 ML IV SCH (12:32)
[2018-11-04] MEDS ORDERED: PNEUMOC 13-VAL CONJ-DIP CRM/PF 0.5 ML DISP.SYRIN IM ONE (15:01)
--- NOTE | 2018-11-04 16:05 | EKG ---
Test Reason : Blood Pressure : / mmHG Vent. Rate : 063 BPM Atrial Rate : 064 BPM P-R Int : 134 ms QRS Dur : 084 ms QT Int : 394 ms P-R-T Axes : 061 050 054 degrees QTc Int : 403 ms NORMAL SINUS RHYTHM NORMAL ECG NO PREVIOUS ECGS AVAILABLE Confirmed by MD DIAZ, COMPA ([id number]) on 11/04/2018 4:05:27 PM Referred By: Confirmed By:COMPA PERALES MD
--- NOTE | 2018-11-04 16:58 | PN ---
Physical Exam: SUBJECTIVE: Patient seen and examined. Pt disclosed today that on Saturday he had bloody streaked emesis and retching on Saturday prior to admission. Keeping NPO for GI evaluation d/t CT findings. OBJECTIVE: Vital Signs Period Temp Pulse Resp BP Sys/Pinto Pulse Ox Last 24 Hr 98.1 F-98.6 F 52-75 16-20 105-125/62-76 97-99 GENERAL: AOx3. No acute distress. HEENT: No lymphadenopathy. NCAT. PERRLA. LUNGS: Breath sounds equal, clear to auscultation bilaterally, no wheezes, no crackles, no accessory muscle use. HEART: Regular rate and rhythm, S1, S2 without murmur, rub or gallop. ABDOMEN: Mild epigastric TTP. Soft, nondistended, normoactive bowel sounds, no guarding. No rebound tenderness. EXTREMITIES: 2+ pulses, warm, well-perfused, no edema. Full ROM all extr. PSYCH: Anxious mood (pt states due to not having been able to eat), affect appropriate to stated mood/ SKIN: No rashes or lesions noted Laboratory Results - last 24 hr 11/03/18 11/03/18 11/04/18 21:29 21:29 01:54 WBC 8.0 RBC 4.99 Hgb 14.5 Hct 43.0 MCV 86.3 MCH 29.1 MCHC 33.7 RDW 13.8 Plt Count 227 MPV 8.7 Absolute Neuts (auto) 5.2 Neutrophils % 64.5 Lymphocytes % 25.4 D Monocytes % 7.1 Eosinophils % 2.7 D Basophils % 0.3 Nucleated RBC % 0 Sodium 144 Potassium 4.8 Chloride 109 H Carbon Dioxide 30 Anion Gap 6 L BUN 14.2 Creatinine 1.1 Est GFR (CKD-EPI)AfAm 106.06 Est GFR (CKD-EPI)NonAf 91.51 POC Glucometer Random Glucose 93 Hemoglobin A1c % Calcium 9.0 Total Bilirubin 0.3 AST 31 ALT 31 Alkaline Phosphatase 84 Total Protein 6.7 Albumin 3.9 Lipase 236 TSH 4.87 H 11/04/18 11/04/18 11/04/18 01:54 06:43 06:43 WBC 6.0 RBC 4.30 Hgb 12.7 Hct 37.1 MCV 86.1 MCH 29.5 MCHC 34.2 RDW 13.4 Plt Count 167 D MPV 8.7 Absolute Neuts (auto) 3.3 Neutrophils % 54.8 Lymphocytes % 32.5 D Monocytes % 8.8 Eosinophils % 3.4 Basophils % 0.5 Nucleated RBC % 0 Sodium 147 H Potassium 4.0 Chloride 112 H Carbon Dioxide 29 Anion Gap 6 L BUN 14.5 Creatinine 0.9 Est GFR (CKD-EPI)AfAm 135.19 Est GFR (CKD-EPI)NonAf 116.64 POC Glucometer Random Glucose 73 L Hemoglobin A1c % 5.0 Calcium 8.2 L Total Bilirubin 0.2 AST 17 ALT 29 Alkaline Phosphatase 66 Total Protein 5.7 L Albumin 3.3 L Lipase TSH 11/04/18 07:57 WBC RBC Hgb Hct MCV MCH MCHC RDW Plt Count MPV Absolute Neuts (auto) Neutrophils % Lymphocytes % Monocytes % Eosinophils % Basophils % Nucleated RBC % Sodium Potassium Chloride Carbon Dioxide Anion Gap BUN Creatinine Est GFR (CKD-EPI)AfAm Est GFR (CKD-EPI)NonAf POC Glucometer 65 Random Glucose Hemoglobin A1c % Calcium Total Bilirubin AST ALT Alkaline Phosphatase Total Protein Albumin Lipase TSH Active Medications Generic Name Dose Route Start Last Admin Trade Name Freq PRN Reason Stop Dose Admin Heparin Sodium (Porcine) 5,000 unit 11/04/18 06:00 11/04/18 16:10 Heparin - SQ 5,000 unit TID DINESH Administration Lactated Ringer's 1,000 ml in 1,000 mls @ 75 mls/hr 11/04/18 07:15 11/04/18 07:23 Lactated Ringers Solution IV 75 mls/hr ASDIR DINESH Administration Dextrose 1,000 mls @ 75 mls/hr 11/04/18 11:15 11/04/18 12:32 D5w - IV 75 mls/hr ASDIR DINESH Administration Metoclopramide HCl 10 mg 11/04/18 07:06 Reglan Injection - IVPUSH Q6H PRN NAUSEA AND/OR VOMITING Pantoprazole Sodium 40 mg 11/04/18 11:15 11/04/18 12:32 Protonix Iv IVPUSH 40 mg DAILY DINESH Administration Pneumococcal 13-Valent Conj Vacc 0.5 ml 11/04/18 15:01 Prevnar 13 Syringe - IM 11/04/18 15:[address] abd/pel 11/02: -2 areas of hyperdense foci in gastric antrum and gastric fundus. Could represent active intraluminal bleeding or foci of angiodysplasia. -Multiple thickened small bowel loops coupled w/ mesenteric adenopathy is a nonspecific finding and could be 2/2 infectious or inflammatory enteritis or mesenteric adenitis however underlying lymphoproliferative disorder cannot be excluded. -Distended terminal ileum w/ stool-like material could be 2/2 incompetent cecal valve. -S/p cholecystectomy. -1.8x1.8cm likely enhancing left lower renal pole mass. Findings are suspicious for renal cell CA until proven otherwise. Recommend MRI of kidneys w/ & w/o contrast. -3mm left lung base and 2mm R lung base nodules. Optional [address] scan or no followup s necessary if patient is low risk for lung neoplasia. If patient is high risk for lung neoplasia [address] scan should be obtained. ASSESSMENT/PLAN: 28 y.o. M PMH mild intermittent asthma, significant psych history (pt hesitant to disclose, as per H&P hx of schizophrenia, bipolar d/o, ADHD). Presenting for nausea, NBNB emesis and diarrhea for a few weeks duration. #Viral gastroenteritis -CT abd/pel findings appreciated (As above) -UA pending -EKG shows NSR -Stool w/u: FOBT neg, stool gram stain neg, C. Dif neg -IV reglan PRN for nausea -HIV pending -IVF: LR -Patient will need outpatient metastatic workup for CT findings of possible renal cell carcinoma -F/u GI (Dr. Hook) #FEN -LR @ 75mL/ hr -Monitor lytes -NPO #DVT PPX -Heparn 5,000 SQ TID Visit type - Emergency Visit Emergency Visit: No - New Patient This patient is new to me today: No - Critical Care Critical Care patient: No ATTENDING PHYSICIAN STATEMENT I saw and evaluated the patient. I reviewed the resident's note and discussed the case with the resident. I agree with the resident's findings and plan as documented. SUBJECTIVE: OBJECTIVE: ASSESSMENT AND PLAN:
[2018-11-04] MEDS ORDERED: PNEUMOCOCCAL 23 VACCINE 0.5 ML VIAL IM ONE (17:00)
--- NOTE | 2018-11-04 17:03 | CON.GI ---
Consult Consult Specialty:: GI Referred by:: Hospitalist Service Reason for Consultation:: N/V/D - History of Present Illness Chief Complaint: I have been haveing nausea, vomiting and diarrhea over the last 3 weeks. History of Present Illness: 28M admitted through [facility] for evaluation of N/V/D for three weeks. CT scan revealed a left renal mass, hyperdensities in the stomach (? AVM's vs. ingested hyperdensities) and ? thickened small bowel loops (vs. underdistension as no contrast was utilized). There has been no N/V/D today and he states that he is hungry. He states that he was 190 pounds this past May and is currently 157 pounds. He has not attempted to lose weight. he states that years ago he was diagnosed with a tape worm via stool study but was never treated for it. He denies recent travel, antiubiotic use, sick contacts, abdominal pain, night sweats. He has never had an upper endoscopy or colonoscopy. CBC is normal including differential. He has never had an upper endoscopy or colonoscopy. There is no family history of colorectal cancer, IBD, Celiac disease. He refused rectal exam during my evaluation but specimen sent was negative for occult blood. - History Source History Provided By: Patient - Past Medical History Additional Medical History: ? 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[employer]) Place of : [facility] History of Recent Travel: No Home Medications - Allergies Allergies/Adverse Reactions: Allergies Allergy/AdvReac Type Severity Reaction Status Date / Time peanut Allergy Verified 11/02/18 15:52 Penicillins Allergy Verified 11/02/18 15:52 mushrooms Allergy Uncoded 11/02/18 15:52 - Home Medications Home Medications: Ambulatory Orders NK [No Known Home Medication] 11/02/18 Family Disease History - Family Disease History Family Disease History: Other: Father (: brain aneurysm), Mother (: 53: AML), Sister (2, healthy) Other Family History: No children. No family history of colorectal cancer or other GI malignancy. Review of Systems - Review of Systems Constitutional: reports: Unintentional Wgt. Loss. denies: Chills, Loss of Appetite Cardiovascular: denies: Chest Pain Respiratory: denies: SOB Gastrointestinal: reports: Diarrhea, Nausea, Vomiting. denies: Abdominal Pain, Melena, Rectal Bleeding Physical Exam-GI Vital Signs: Vital Signs Temperature 98.4 F 11/04/18 15:00 Pulse Rate 53 L 11/04/18 15:00 Respiratory Rate 18 11/04/18 15:00 Blood Pressure 105/64 11/04/18 15:00 O2 Sat by Pulse Oximetry (%) 98 11/04/18 12:30 Constitutional: Yes: Calm Eyes: No: Sclera Icterus Cardiovascular: Yes: Regular Rate and Rhythm Respiratory: Yes: CTA Bilaterally Gastrointestinal Inspection: Yes: Scars (healed trochar scars). No: Distention ...Auscultate: Yes: Normoactive Bowel Sounds ...Palpate: Yes: Soft, Other (No significant inguinal lymphadenopathy palpated) . No: Hepatomegaly, Splenomegaly, Tenderness ...Percussion: No: Tympanitic ...Rectal Exam: Yes: Deferred (refused by patient) Edema: No (No LE edema) Neurological: Yes: Alert Labs: CBC, BMP 11/04/18 06:43 11/04/18 06:43 Imaging - Results Cat Scan: Report Reviewed, Image Reviewed Assessment/Plan For further evaluation of abnormal CT scan findings / weight loss, discussed upper endoscopy for further evaluation. Discussed potential risks of the procedure like but not limited to bleeding, perforation requiring surgery to repair, infection, sedation medication effects all of which could be potentiually life threatening. He has agreed to the procedure. NPO after midnight Heparin held Clear liquids for now Stool for culture, C. Diff, O&P. If stool studies unrevealing, colonoscopy could be considered Evaluation of left renal mass per primary team
--- NOTE | 2018-11-04 17:37 | PN ---
Teaching Attending Note Name of Resident: Michell Vasquez ATTENDING PHYSICIAN STATEMENT I saw and evaluated the patient. I reviewed the resident's note and discussed the case with the resident. I agree with the resident's findings and plan as documented. SUBJECTIVE:c/o epigastic discomfort but states he has been tolerating food since first eval on saturday. does admit to some blood streaked emesis after several hours of retching. denies Cp, SOB, fever, chills, N/V/C/D. is very hungry and requesting to eat OBJECTIVE: Last Vital Signs Temp Pulse Resp BP Pulse Ox 98.4 F 53 L 18 105/64 98 11/04/18 15:00 11/04/18 15:00 11/04/18 15:00 11/04/18 15:00 11/04/18 12:30 General NAD CV S1 S2 RRR no murmur/rub/gallop Lungs CTA B/L no wheezing/rales/rhonchi Abdomen +epigastric tenderness no rebound or guarding Extremities no pedal edema ASSESSMENT AND PLAN: 28yo M with PMH asthma and psychiatric disease presented initially on 11/02 for abdominal pain with nausea and vomiting and found on imaging to have Lrenal mass which he was told to f/u on but then read changed showing hyperdense foci in stomach suspicious for blood and called to return to the ER 1. Gastric antrum bleeding vs angiodysplasia- pt is no longer symptomatic but reports vomiting blood with drop in Hgb from initial eval which could be dilutional as likely was hemoconcentrated. will trend hgb. no indication for transfusion at this time as not currently bleeding. currently NPO with IVF. Gi consulted for possible EGD to further evaluate. 2. L renal mass- in setting of +significant weight loss there is highly suspicious for RCC with lung nodules. will need to schedule bx by IR of renal mass and f/u with oncology as outpatient for next steps in treatment. would benefit from PET. 3. psychiatric illness- not on medications. stopped due to lack of insurance. psych consulted 4. VERITO- due to dehydration. resolved 5. DVT ppx- EAM
[2018-11-04 17:52] LABS: PH,URINE 6.5 (5.0-8.0); URINE APPEARANCE CLEAR; URINE BILIRUBIN NEGATIVE (NEGATIVE); URINE COLOR YELLOW; URINE GLUCOSE (UA) NEGATIVE (NEGATIVE); URINE KETONE NEGATIVE (NEGATIVE); URINE LEUK ESTERASE NEGATIVE (NEGATIVE); URINE NITRITE NEGATIVE (NEGATIVE); URINE PROTEIN NEGATIVE (NEGATIVE); URINE UROBILINOGEN 0.2 mg/dL (0.2-1.0)
--- NOTE | 2018-11-04 19:06 | CON.PSY ---
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 Patient seen for Psych eval. apparantly had been on Abilify and stopped taking it 2 Yeras ago. He reports that he has not seen a psychatrist in 2 yeras. Denies any ongoing Psych symptoms at this time. - Previous Psychiatric Treatment Outpatient: More than 6 mos ago Inpatient: None - Reason for Previous Treatment Reason for Previous Treatment: Other - Current Medications Current Medications: Active Medications Heparin Sodium (Porcine) (Heparin -) 5,000 unit SQ TID [facility] Last Admin: 11/04/18 16:10 Dose: 5,000 unit Dextrose (D5w -) 1,000 mls @ 75 mls/hr IV ASDIR [facility] Last Admin: 11/04/18 12:32 Dose: 75 mls/hr Metoclopramide HCl (Reglan Injection -) 10 mg IVPUSH Q6H PRN PRN Reason: NAUSEA AND/OR VOMITING Pantoprazole Sodium (Protonix Iv) 40 mg IVPUSH DAILY [facility] Last Admin: 11/04/18 12:32 Dose: 40 mg - Allergies Allergies: Allergies Allergy/AdvReac Type Severity Reaction Status Date / Time peanut Allergy Verified 11/02/18 15:52 Penicillins Allergy Verified 11/02/18 15:52 mushrooms Allergy Uncoded 11/02/18 15:52 - Current Living Status Usual Living Arrangement: Alone - Current Mental Status Evaluation Appearance: Well Groomed Attitude: Guarded - Affect Affect: Constrictive Appropriateness: Appropriate to Content - Mood Mood: Euthymic - Speech/Language Expressive: Coherent - Psychomotor Activity Psychomotor Activity: Normal - Thought Process Thought Process: Intact - Thought Content Hallucinations: Absent Delusions: Absent - Self Perception Self Perception: No Impairment - Cognition Attention: Alert Orientation: Time Memory, Immediate Recall: Intact Memory, Short Term: 3/3 Memory, Remote with Promptin/3 - Concentration Serial Sevens Intact: Yes Simple Calculations Intact: Yes - Abstraction Proverb Interpretation: Intact Judgement: Intact - Insight Insight: Intact - Impulse Control Impulse Control: Good Control - Suicidal Ideation Suicidal Ideation: No - Homicidal Ideation Homicidal Ideation: No Assessment/Plan 1) No acute Mental illness present at this time. 2) No Psych meds needed now. 3) Will re eval if Mental status changes.
--- NOTE | 2018-11-04 20:54 | PN ---
Progress Note (short form) - Note Progress Note: Consult dictated 28 year old with 3 week hx of nause, vomiting, diarrhea. 5 month history of > [address] of abdomen- left renal mass, , left and right lower lobe pulmonary nodules, small bowel thickening , retroperitoneal lymphadenopathy, gastic hyperdensities. Mother of AML; father with cerebral aneurysms, No other history of malignancy known Past history - psychiatric; S/P cholecystectomy No meds No smoking, drinking, exposures, illicit drugs no hematuria Last Vital Signs Temp Pulse Resp BP Pulse Ox 97.9 F 54 L 18 119/63 98 11/04/18 18:55 11/04/18 18:55 11/04/18 18:55 11/04/18 18:55 11/04/18 12:30 HEENT: ANISH, EOM Intact Oropharynx: No thrush, No mucositis Neck: Supple Nodes: Without adenopathy Cor: RSR, No murmurs, No gallops Lungs: Clear to P&A Abd: Soft, Normal bowel sounds, No organomegaly testes- descended; circumcised Ext:No significant edema Skin: No rashes, Integument intact Plan: EGD CT chest MRI of kidneys Review of imaging.
--- NOTE | 2018-11-04 22:07 | CONS ---
DATE OF CONSULTATION: 11/04/2018 This is a 28-year-old admitted with nausea, vomiting, diarrhea for 3 weeks. Patient states, since May 2018, he has dropped from 190 to 157 pounds. During the course of his evaluation, he underwent a CT scan, which revealed a left renal mass, hyperdensities in the stomach, and a questionable thickened small bowel. FAMILY HISTORY: Nobody with renal cell carcinoma. Mother of acute myeloid leukemia. Other history from the family is not known. SOCIAL HISTORY: The patient is a nonsmoker, nondrinker. 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 PAST SURGICAL HISTORY: Cholecystectomy in [place] in March 2008. ALLERGIES: PEANUTS and PENICILLIN. There are no known medicines. REVIEW OF SYSTEMS: No headaches, diplopia, epistaxis, dysphagia, shortness of breath, chest pain. Nausea, vomiting, diarrhea as aforementioned. Suprapubic pain on urination. No hematuria. No numbness and tingling. No back or bone pain. CURRENT PHYSICAL EXAMINATION: Vital Signs: Blood pressure 119/63, pulse 54, respiratory rate 18, afebrile. HEENT: PERRLA. EOMs intact. Oropharynx unremarkable. Lungs: Clear. Cardiac: RSR. Lymphatic: No cervical, supraclavicular, axillary, or inguinal nodes. Abdomen: Soft. No organomegaly or masses. Genitalia: Testes descended. Circumcised male. Extremities: No significant edema. LABORATORY: WBCs 6.0, hematocrit 43% to 34%, platelets 227 to 167, polys 64 and 54, lymphs 25 and 32, monos 7 and 8. Chemistries: 147, 4.0, 112, 29, BUN 6, creatinine 0.9, glucose 73, EGFR 116, calcium 8.2. Bilirubin 0.2, AST 17, ALT 29, alkaline phosphatase 66, protein 5.7, albumin 3.3. TSH 4.87. Urine negative. HIV pending. PAST PSYCHIATRIC HISTORY: On no medicines for the past 3 years. IMPRESSION: A 28-year-old who presents with [id number]-pound weight loss over 4 to 5 months; recent 3-week history of nausea, vomiting, diarrhea; and CT with imaging revealing a kidney mass with mesenteric lymphadenopathy as well as pulmonary nodules. CT report reveals 2 areas of hyperdense foci in the gastric antrum and gastric fundus, could bottling equipment sales representative of intraluminal bleeding or foci of angiodysplasia or, alternatively, artifacts from hyperdense ingested material. Multiple thickened small bowel loops coupled with mesenteric adenopathy is a nonspecific finding, could be infectious, inflammatory, or mesenteric adenitis, but an underlying lymphoproliferative disorder cannot be excluded. Distended terminal ileum could be secondary to incompetent ileocecal valve. There is a 1.8 x 1.8 cm left lower lobe renal mass, suspicious for renal cell carcinoma, and 3 mm and 2 mm left lung and right lung base nodules. PLAN: 1. Upper endoscopy for evaluation. 2. MRI of kidneys. 3. CT scan of the chest. Based upon evaluation and review, further recommendations to follow. GUTIERREZ ROTH M.D. VAUGHN/[id number]
[2018-11-05] MEDS: DEXTROSE 5%-WATER - 1,000 ML IV SCH ×2 (01:55→13:32)
[2018-11-05 09:45] LABS: INR 1.14 (0.83-1.09); PROTHROMBIN TIME (PATIENT) 13.5 SEC (9.7-13.0)
[2018-11-05 09:54] LABS: ALBUMIN 3.8 g/dl (3.4-5.0); BILIRUBIN,TOTAL 0.6 mg/dL (0.2-1); BLOOD UREA NITROGEN 7.4 mg/dL (7-18); CALCIUM 9.3 mg/dL (8.5-10.1); CREATININE 0.9 mg/dL (0.55-1.3); MAGNESIUM 2.1 mg/dL (1.8-2.4); POTASSIUM 4.3 mmol/L (3.5-5.1); TOT PROT 6.7 g/dl (6.4-8.2)
[2018-11-05] MEDS: PANTOPRAZOLE SODIUM 40 MG VIAL IVPUSH SCH (11:01)
--- NOTE | 2018-11-05 11:34 | PN ---
Teaching Attending Note Name of Resident: Michell Vasquez ATTENDING PHYSICIAN STATEMENT I saw and evaluated the patient. I reviewed the resident's note and discussed the case with the resident. I agree with the resident's findings and plan as documented. SUBJECTIVE:c/o hunger. states he tolerated dinner without difficulty. staets he has not had any loose BM since this hospital admission. abdominal pain improvged. denies Cp, SOb, fever, chills, N/V/C/D OBJECTIVE: Last Vital Signs Temp Pulse Resp BP Pulse Ox 98.4 F 55 L 18 118/71 98 11/05/18 10:00 11/05/18 10:00 11/05/18 10:00 11/05/18 10:00 11/04/18 21:00 General NAD CV S1 S2 RRR no murmur/rub/gallop Lungs CTA B/L no wheezing/rales/rhonchi Abdomen soft NT/ND no rebound or guarding ASSESSMENT AND PLAN: 28yo M with PMH asthma and psychiatric disease presented initially on 11/02 for abdominal pain with nausea and vomiting and found on imaging to have Lrenal mass which he was told to f/u on but then read changed showing hyperdense foci in stomach suspicious for blood and called to return to the ER 1. Gastric antrum bleeding vs angiodysplasia- NPO for EGD this AM. pt is no longer symptomatic. awaiting repeat CBC to ensure hgb is stable. f/u GI recommendations. 2. L renal mass- in setting of +significant weight loss there is highly suspicious for RCC with lung nodules. will need to schedule bx by IR of renal mass and f/u with oncology as outpatient for next steps in treatment. would benefit from PET. 3. psychiatric illness- not on medications. seen by psych no meds at this time 4. VERITO- due to dehydration. resolved 5. DVT ppx- EAM 6. plan to d/c today pending results of EGD. will need close follow up. stressed importance of follow up and appointemnts for Bx
[2018-11-05 12:39] LABS: BASO % 0.2 % (0-2.0); EOS % 1.8 % (0-4.5); HEMATOCRIT 43.9 % (35.4-49); HEMOGLOBIN 14.9 GM/dL (11.7-16.9); LYMPH % 19.2 % (8-40); MEAN CELL VOLUME 85.5 fl (80-96); MEAN PLT VOLUME 9.2 fl (7.5-11.1); MONO % 8.3 % (3.8-10.2); NEUT % 70.5 % (42.8-82.8); PLATELET COUNT 202 K/MM3 (134-434); RBC 5.14 M/mm3 (4.00-5.60); RDW 13.8 % (11.9-15.9); WHITE BLOOD COUNT 8.6 K/mm3 (4.0-10.0)
--- NOTE | 2018-11-05 12:57 | PN ---
Progress Note (short form) - Note Progress Note: Brief GI note EGD performed today revealing gastropathy of unclear significance (pt denies etoh use and no known h/o liver disease) and antral erythema with mild nodular appearance. No mass lesions or foreign objects seen. Otherwise normal exam. Biopsies taken r/o H. pylori and celiac disease. See scanned report. Recommendations: -Follow up pathology results -PPI daily for now -Clear liquid diet and advance as tolerated -Discussed possible colonoscopy with pt and he declines at this time. -Pending course and diet toleration can follow up as outpatient to discuss pathology results and for further management.
[2018-11-05 16:54] VITALS: BMI 23.8
--- NOTE | 2018-11-05 17:04 | DS ---
Physical Exam: SUBJECTIVE: Patient seen and examined. Pt doing well post EGD. Tolerating PO regular diet. Currently denies nausea/ emesis/ diarrhea/ myalgias/ headache/ abdominal pain/ chills/ fevers/ diaphoresis. OBJECTIVE: Vital Signs Period Temp Pulse Resp BP Sys/Pinto Pulse Ox Last 24 Hr 97.8 F-98.4 F 53-83 18-18 107-121/60-83 96-98 PHYSICAL EXAM GENERAL: AOx3. No acute distress. HEENT: No lymphadenopathy. NCAT. PERRLA. LUNGS: Breath sounds equal, clear to auscultation bilaterally, no wheezes, no crackles, no accessory muscle use. HEART: Regular rate and rhythm, S1, S2 without murmur, rub or gallop. ABDOMEN: Nontender. Soft, nondistended, normoactive bowel sounds, no guarding. EXTREMITIES: 2+ pulses, warm, well-perfused, no edema. Full ROM all extremities. PSYCH: Normal mood, appropriate affect. SKIN: No rashes or lesions noted LABS Laboratory Results - last 24 hr 11/04/18 11/04/18 11/05/18 01:54 16:17 08:20 WBC RBC Hgb Hct MCV MCH MCHC RDW Plt Count MPV Absolute Neuts (auto) Neutrophils % Lymphocytes % Monocytes % Eosinophils % Basophils % Nucleated RBC % ESR 2 PT with INR INR Sodium Potassium Chloride Carbon Dioxide Anion Gap BUN Creatinine Est GFR (CKD-EPI)AfAm Est GFR (CKD-EPI)NonAf Random Glucose Calcium Phosphorus Magnesium Total Bilirubin AST ALT Alkaline Phosphatase LD Total Total Protein Albumin Urine Color Yellow Urine Appearance Clear Urine pH 6.5 D Ur Specific Julian 1.010 Urine Protein Negative Urine Glucose (UA) Negative Urine Ketones Negative Urine Blood Negative Urine Nitrite Negative Urine Bilirubin Negative Urine Urobilinogen 0.2 Ur Leukocyte Esterase Negative HIV 1&2 Ag/Ab, 4th Gen Non reactive 11/05/18 11/05/18 11/05/18 08:20 08:20 08:20 WBC 8.6 RBC 5.14 Hgb 14.9 Hct 43.9 D MCV 85.5 MCH 29.0 MCHC 34.0 RDW 13.8 Plt Count 202 D MPV 9.2 Absolute Neuts (auto) 6.1 Neutrophils % 70.5 D Lymphocytes % 19.2 D Monocytes % 8.3 Eosinophils % 1.8 Basophils % 0.2 Nucleated RBC % 0 ESR PT with INR 13.50 H INR 1.14 H Sodium Potassium Chloride Carbon Dioxide Anion Gap BUN Creatinine Est GFR (CKD-EPI)AfAm Est GFR (CKD-EPI)NonAf Random Glucose Calcium Phosphorus Magnesium Total Bilirubin AST ALT Alkaline Phosphatase LD Total 174 Total Protein Albumin Urine Color Urine Appearance Urine pH Ur Specific Julian Urine Protein Urine Glucose (UA) Urine Ketones Urine Blood Urine Nitrite Urine Bilirubin Urine Urobilinogen Ur Leukocyte Esterase HIV 1&2 Ag/Ab, 4th Gen 11/05/18 08:20 WBC RBC Hgb Hct MCV MCH MCHC RDW Plt Count MPV Absolute Neuts (auto) Neutrophils % Lymphocytes % Monocytes % Eosinophils % Basophils % Nucleated RBC % ESR PT with INR INR Sodium 143 Potassium 4.3 Chloride 104 Carbon Dioxide 33 H Anion Gap 7 L BUN 7.4 Creatinine 0.9 Est GFR (CKD-EPI)AfAm 135.19 Est GFR (CKD-EPI)NonAf 116.64 Random Glucose 78 Calcium 9.3 Phosphorus 4.0 Magnesium 2.1 Total Bilirubin 0.6 AST 20 ALT 31 Alkaline Phosphatase 79 LD Total Total Protein 6.7 Albumin 3.8 Urine Color Urine Appearance Urine pH Ur Specific Julian Urine Protein Urine Glucose (UA) Urine Ketones Urine Blood Urine Nitrite Urine Bilirubin Urine Urobilinogen Ur Leukocyte Esterase HIV 1&2 Ag/Ab, 4th Gen HOSPITAL COURSE: 28 y.o. M PMH mild intermittent asthma, significant psych history (pt hesitant to disclose, as per H&P hx of schizophrenia, bipolar d/o, ADHD) presented for nausea, NBNB emesis and diarrhea for a few weeks duration. Stool studies performed which were negative. Pt started on IVF. CT abd/ pel performed showing possible gastric bleed vs angiodysplasia. EGD performed by GI showing gastropathy of undetermined significance and antral erythema with mild nodular appearance. Biopsies taken during EGD for rule-out H. pylori and celiac disease- pt to f/u results outpatient with GI. CT abd /pelvis showed incidental findings of left renal mass suspicious for renal cell carcinoma, multiple thickened small bowel loops coupled w/ mesenteric adenopathy, and both a left and right lung base nodule. For these findings, patient was urged to follow up with IR for renal biopsy as soon as possible as well as oncology and GI. Patient is currently afebrile and hemodynamically stable. Date of Admission:11/03/18 CT abd/pel 11/02: -2 areas of hyperdense foci in gastric antrum and gastric fundus. Could represent active intraluminal bleeding or foci of angiodysplasia. -Multiple thickened small bowel loops coupled w/ mesenteric adenopathy is a nonspecific finding and could be 2/2 infectious or inflammatory enteritis or mesenteric adenitis however underlying lymphoproliferative disorder cannot be excluded. -Distended terminal ileum w/ stool-like material could be 2/2 incompetent cecal valve. -S/p cholecystectomy. -1.8x1.8cm likely enhancing left lower renal pole mass. Findings are suspicious for renal cell CA until proven otherwise. Recommend MRI of kidneys w/ & w/o contrast. -3mm left lung base and 2mm R lung base nodules. Optional [address] scan or no followup s necessary if patient is low risk for lung neoplasia. If patient is high risk for lung neoplasia [address] scan should be obtained. Date of Discharge: 11/05/18 Discharge Summary Reason For Visit: NAUSEA, VOMITING, & DIARRHEA, MASS OF KIDNEY OF Current Active Problems Abdominal pain (Acute) Nausea, vomiting and diarrhea (Acute) Renal mass of unknown nature (Acute) Condition: Stable - Instructions Diet, Activity, Other Instructions: Your visit: You were admitted to the hospital for nausea, vomiting and diarrhea. You were treated with IV fluids and monitoring. While you were here, you had imaging done showing a mass in your left kidney, inflammation of your small intestine, and a nodule in your left and right lungs. You were also found to have some irritation of your stomach. You had a few biopsies taken and you will need to follow up with your kitchen and bath designer for the results of these biopsies. It is recommended that you have a colonoscopy performed in the near future. For findings of the kidney mass it is VERY IMPORTANT that you follow this up with interventional radiology for a biopsy and an oncologist as this may be cancerous. For the nodules in your lungs we recommend a follow up CT scan in 12 months. Medication 1. Please take Protonix 40mg daily. Follow up with the following physicians: 1. Primary care provider in 1 week. If you do not have a primary care provider you may come to the clinic located at [address] to see Dr[address] Vasquez on Mondays from 1-4:00PM. 2. Account Contact Associate (Dr. Kay) in 1 week. 3. Interventional Radiology (Dr. Bhandari) as soon as possible for findings of the kidney mass. Please call [phone] to schedule an appointment.for a kidney biopsy. 3. Oncologist (Dr. Krishnamurthy) in 1 week. 4. Psychiatrist (Dr. Vasquez) in 1 week. Further Instructions: You are being discharged to your home. Please return to the ER if you have any signs or symptoms of chest pain, shortness of breath, dizziness, nausea, vomiting, abdominal pains, diarrhea, fevers, fatigue or muscle pains. Please return to the ER if symptoms persist, worsen, or new symptoms arise. Referrals: Antony Meyers MD [Staff Physician] - Willie Vasquez MD [Staff Physician] - Rahul Kay DO [Staff Physician] - Bernabe Bhandari MD [Staff Physician] - (Please call [phone] to schedule an appointment for a kidney mass biopsy.) Jaspal Krishnamurthy MD [Staff Physician] - Disposition: HOME - Home Medications Comprehensive Discharge Medication List: Ambulatory Orders Pantoprazole Sodium [Protonix] 40 mg PO DAILY #30 tablet. 11/05/18 ATTENDING PHYSICIAN STATEMENT I saw and evaluated the patient. I reviewed the resident's note and discussed the case with the resident. I agree with the resident's findings and plan as documented. SUBJECTIVE: OBJECTIVE: ASSESSMENT AND PLAN:
--- NOTE | 2018-11-05 19:21 | PN ---
Progress Note (short form) - Note Progress Note: Patient seen Underwent EGD Biopsies obtained Multiple ongoing problems- discussed with patient . Need to follow up Renal mass, mesenteric lymphadenopathy, weight loss, pulmonary nodules. Gave patient contact information for my office , if he is to be discharged
[2018-11-05] MEDS: HEPARIN NA (PORCINE) 5,000 UNITS/ML 1ML VIAL SQ SCH (22:53)
[2018-11-06] MEDS: HEPARIN NA (PORCINE) 5,000 UNITS/ML 1ML VIAL SQ SCH (07:02)
[2018-11-06 09:15] VITALS: BP 129/75; PULSE 66; TEMP 98
[2018-11-06] MEDS ORDERED: PANTOPRAZOLE 40 MG TABLET (FP) PO SCH (10:00)
--- NOTE | 2018-11-06 14:52 | PN ---
Teaching Attending Note Name of Resident: Michell Vasquez ATTENDING PHYSICIAN STATEMENT I saw and evaluated the patient. I reviewed the resident's note and discussed the case with the resident. I agree with the resident's findings and plan as documented. SUBJECTIVE:c/o no BM since arrival. tolerating diet. denies Cp, SOB, fever, chills, N/V/C/D. states arm swelling from IM resolved OBJECTIVE: Last Vital Signs Temp Pulse Resp BP Pulse Ox 98.0 F 66 18 129/75 96 11/06/18 09:10 11/06/18 09:10 11/06/18 09:10 11/06/18 09:10 11/06/18 09:00 General NAD Abdomen soft NT/ND ASSESSMENT AND PLAN: 28yo M with PMH asthma and psychiatric disease presented initially on 11/02 for abdominal pain with nausea and vomiting and found on imaging to have Lrenal mass which he was told to f/u on but then read changed showing hyperdense foci in stomach suspicious for blood and called to return to the ER 1. Gastric antrum bleeding vs angiodysplasia-s/p EGD done showing erythema. bx done. tolerating diet. concern for no BM since arrival. reminded patient how diarrhea for 3weeks and that he did not eat for over 24H that as his diet improves he should cont with regular BM. informed needs to f/u with GI for Bx results 2. L renal mass- in setting of +significant weight loss there is highly suspicious for RCC with lung nodules. will need to schedule bx by IR of renal mass and f/u with oncology as outpatient for next steps in treatment. would benefit from PET. 3. psychiatric illness- not on medications. seen by psych no meds at this time. was on aricept which was stopped by his mother 3 years ago, encouraged to f/u with psych to re-start if indicated 4. VERITO- due to dehydration. resolved 5. DVT ppx- EAM 6. d/c yesterday but appealed due to no BM for 24H. spoke with patient and sister via phone and explained results of EGD and further course. some confusion clarified and sister agreed with discharge. states they have a family oncologist which they would prefer to have workup done with and pursue bx at [place] with them.
--- NOTE | 2018-11-06 16:57 | PATH ---
Surgical Pathology Report Patient Name: GAMAL AMEZCUA [facility]. Rec. #: [id number] /Age/Gender: 1990 (Age: 28) / M Account: [id number] Location: [address] [place] [id number] Taken: 11/05/2018 Received: 11/05/2018 Reported: 11/06/2018 Physicians: Yamileth Scruggs MD Specimen(s) Received A: SMALL BOWEL B: ANTRUM C: GASTRIC BODY Clinical History Nausea and vomiting, weight loss Postoperative diagnosis: Gastritis Final Diagnosis A. SMALL BOWEL, BIOPSY: DUODENAL MUCOSA WITH MODERATE ACUTE AND CHRONIC DUODENITIS. B. STOMACH, ANTRUM, BIOPSY: GASTRIC ANTRAL MUCOSA WITH SEVERE CHRONIC ACTIVE GASTRITIS. IMMUNOHISTOCHEMICAL STAIN FOR H. PYLORI IS POSITIVE (MANY). C. GASTRIC BODY, BIOPSY: GASTRIC BODY MUCOSA WITH SEVERE CHRONIC ACTIVE GASTRITIS. IMMUNOHISTOCHEMICAL STAIN FOR H. PYLORI IS POSITIVE (MANY). Electronically Signed Keisha Napier M.D. Gross Description A. Received in formalin, labeled "small bowel" are 4 shannon, irregular portions of soft tissue measuring 0.1-0.2 cm. in greatest dimension. The specimens are submitted in toto in one cassette. B. Received in formalin, labeled "antrum" are 3 shannon, irregular portions of soft tissue measuring 0.1-0.5 cm. in greatest dimension. The specimens are submitted in toto in one cassette. C. Received in formalin, labeled "gastric body" are 5 shannon, irregular portions of soft tissue measuring 0.1-0.3 cm. in greatest dimension. The specimens are submitted in toto in one cassette. MLSZ/11/05/2018 sanml/11/05/2018
[2018-11-07 16:07] LABS: BETA-2-MICROGLOBULIN 1.7 mg/L (0.6-2.4)
== END 2018-11-06 14:32 | disposition home or self-care (01) | DRG 254 ==
LOC: JER 21:15 → JERBED 23:45 → J5S 11-04 11:51
PROVIDERS: ADMIT Internal Medicine; ATTEND Internal Medicine
PROC: 0DB78ZX Excision of Stomach, Pylorus, Via Natural or Artificial Opening Endoscopic, Diagnostic (ICD-10-PCS; principal; 2018-11-03)
PROC: 0DB98ZX Excision of Duodenum, Via Natural or Artificial Opening Endoscopic, Diagnostic (ICD-10-PCS; 2018-11-03)
PROC: 0DB64ZZ Excision of Stomach, Percutaneous Endoscopic Approach (ICD-10-PCS; 2018-11-03)
DX: K31.9 Disease of stomach and duodenum, unspecified (principal); N17.9 Acute kidney failure, unspecified; F20.9 Schizophrenia, unspecified; N28.9 Disorder of kidney and ureter, unspecified; Z88.0 Allergy status to penicillin; E86.0 Dehydration; R91.8 Other nonspecific abnormal finding of lung field; R59.1 Generalized enlarged lymph nodes; F43.10 Post-traumatic stress disorder, unspecified; F31.9 Bipolar disorder, unspecified; F90.9 Attention-deficit hyperactivity disorder, unspecified type; J45.20 Mild intermittent asthma, uncomplicated; R35.0 Frequency of micturition; R39.15 Urgency of urination; R63.4 Abnormal weight loss; Z68.23 Body mass index [BMI] 23.0-23.9, adult
CPT/HCPCS: 36415; 80053; 81003; 82232; 82962; 83036; 83615; 83690; 83735; 84100; 84443; 85025; 85610; 85651; 86038; 87389; 88305-TC; 90732; 93005; 93010; 99284-25; G0009; J1644; J7030